=== PATIENT | female | born 1965 | race Caucasian/White ===

== ENCOUNTER 2025-03-04 08:50 | Outpatient (CLI) | payer BC | END 2025-03-04 08:51 | disposition home or self-care (01) | LOC: CSHULT 08:50 | PROVIDERS: ATTEND Nurse Practitioner Family | DX: K74.69 Other cirrhosis of liver (principal); Z12.9 Encounter for screening for malignant neoplasm, site unspecified; K76.0 Fatty (change of) liver, not elsewhere classified | CPT/HCPCS: 76700 ==